=== PATIENT | male | born 1955 | race African-American/Black ===

== ENCOUNTER 2023-02-24 07:00 | Day surgery (SDC) | payer OTHER, MEDICAID ==
[~2023-02-24] VITALS: Ht 177.8 cm; Wt 81.6 kg
[~2023-02-24 07:00] MED LIST: APIX5TAB PO; ATOR10TA52 PO; CHOL200021 PO; DOCU-94 PO; EZET10TA22 PO; FURO20TA3 PO; GLIP10TA9 PO; INSLANTI SC; METF-370 PO; OMEP20TA PO; PREG75CA PO; ROPI2TAB31 PO
[2023-02-24] MEDS ORDERED: VANCOMYCIN HCL 1000 MG VL ONE (08:26)
[2023-02-24] MEDS ORDERED: EPINEPHrine HCL 1 MG/1 ML AMP ONE (08:43)
[2023-02-24] MEDS ORDERED: LIDOCAINE 1% HCL (LOCAL ANESTH.) INJ 20ML MDV ONE (08:43)
[2023-02-24] MEDS ORDERED: ceFAZolin 1GM VL ONE (08:43)
[2023-02-24] MEDS ORDERED: MEPERIDINE HCL (25 MG/ML) 1ML VIAL IV PRN (08:45)
[2023-02-24] MEDS ORDERED: HYDROmorphone HCL 2 MG/ML VL/or syr IV PRN (08:45)
[2023-02-24] MEDS ORDERED: fentaNYL CITRATE 100 MCG/2 ML VL ONE (08:45)
[2023-02-24] MEDS ORDERED: ONDANSETRON HCL 4 MG/2 ML VIAL IV PRN (08:45)
[2023-02-24] MEDS ORDERED: DexAMETHasone SOD PHOS 10MG/1ML VIAL INJ ONE (09:18)
[2023-02-24] MEDS ORDERED: PROPOFOL 10 MG/ML 20 ML IV ONE (09:18)
[2023-02-24] MEDS ORDERED: ONDANSETRON HCL 4 MG/2 ML VIAL ONE (09:18)
[2023-02-24] MEDS ORDERED: ePHEDrine SULFATE 50 MG/ML AMP ONE (09:20)
[2023-02-24] MEDS ORDERED: MEPERIDINE HCL (25 MG/ML) 1ML VIAL ONE ×4 (09:39→10:46)
[2023-02-24] MEDS ORDERED: GENTAMICIN SULFATE 2 ML ONE (09:44)
[2023-02-24 10:54] VITALS: PULSE 85; RESP 11; TEMP 96.9; O2SAT 95
[2023-02-24] MEDS ORDERED: InsuLIN REG 1unit/0.01ml Soln (100units/ml) SC ONE (11:15)
[2023-02-24] MEDS ORDERED: InsuLIN REG 1unit/0.01ml Soln (100units/ml) ONE (11:24)
[2023-02-24] MEDS ORDERED: HYDROmorphone HCL 2 MG/ML VL/or syr ONE (11:25)
[2023-02-24] MEDS ORDERED: HYDROmorphone HCL 2 MG/ML VL/or syr IV ONE (11:30)
[2023-02-24 12:10] VITALS: BP 157/87; PULSE 96; RESP 12; O2SAT 96
== END 2023-02-24 12:25 | disposition home or self-care (01) ==
LOC: SUR 07:00
PROVIDERS: ATTEND Urology
DX: N52.9 Male erectile dysfunction, unspecified (principal); E11.40 Type 2 diabetes mellitus with diabetic neuropathy, unspecified; Z79.84 Long term (current) use of oral hypoglycemic drugs; Z79.899 Other long term (current) drug therapy
CPT/HCPCS: 54405; 82962; C1813; J0690; J1100; J1170; J1580; J1815; J2175; J2405; J2704; J3010; J3370; J7030; J0171; J2001